=== PATIENT | female | born 1975 | race Caucasian/White ===

== ENCOUNTER 2019-11-26 12:57 | Observation (INO) ==
[~2019-11-26 12:57] MED LIST: Famotidine 20 MG/2 ML VIAL IVP ONE; Gabapentin 300 MG CAPSULE PO ONE; Ipratropium/Albuterol Neb 3 ML IH ONE
[2019-11-26] MEDS ORDERED: CeFAZolin Syr 3,000MG/30 ML 3,000 MG/30 ML SYRINGE IVPB ONE (13:15)
[2019-11-26] MEDS ORDERED: Ringers Solution, Lactated 1,000 ML IVC SCH ×2 (13:15→19:30)
[2019-11-26] MEDS ORDERED: Ipratropium/Albuterol Neb 3 ML IH ONE (14:13)
[2019-11-26] MEDS ORDERED: Gabapentin 300 MG CAPSULE PO ONE (14:14)
[2019-11-26] MEDS ORDERED: Famotidine 20 MG/2 ML VIAL IVP ONE (14:14)
[2019-11-26] MEDS ORDERED: Dexamethasone 4 MG/ML VIAL ONE (14:38)
[2019-11-26] MEDS ORDERED: Lidocaine HCL 4 ML Topical Solution (Laryng-O-Jet Kit Sterile Pak) TP ONE (14:38)
[2019-11-26] MEDS ORDERED: *HR* Rocuronium Bromide 50 MG/5 ML VIAL ONE (14:38)
[2019-11-26] MEDS ORDERED: Lidocaine -MPF 2% 2 ML VIAL ONE (14:38)
[2019-11-26] MEDS ORDERED: Ondansetron 4 MG/2 ML VIAL ONE (14:38)
[2019-11-26] MEDS ORDERED: *HR* Midazolam HCl 2 MG/2 ML VIAL ONE (14:38)
[2019-11-26] MEDS ORDERED: *HR* FentaNYL (PF) 100 MCG/2 ML VIAL ONE (14:38)
[2019-11-26] MEDS ORDERED: *HR* Propofol 200 MG/20 ML VIAL IVP ONE ×2 (14:38→14:56)
[2019-11-26] MEDS ORDERED: *HR* Succinylcholine 200 MG/10 ML VIAL IVP ONE (14:54)
[2019-11-26] MEDS ORDERED: Bupivacaine/EPI 1:200k 0.5%PF 30 ML VIAL ONE (14:59)
[2019-11-26] MEDS ORDERED: *HR* HYDROMORPHONE 2 MG/ML VIAL ONE (15:50)
[2019-11-26] MEDS ORDERED: *HR* PHENYLEPHRINE 1,000 MCG/10 ML SYRINGE IVP ONE (16:10)
[2019-11-26] MEDS: *HR* HYDROmorphone (PF) 1 MG/ML SYRINGE IVP PRN ×2 (16:55→17:10)
[2019-11-26] MEDS ORDERED: Ondansetron 4 MG/2 ML VIAL IVP PRN ×2 (17:03→19:30)
[2019-11-26] MEDS ORDERED: *HR* Labetalol 20 MG/4 ML SYRINGE IVP PRN (17:03)
[2019-11-26] MEDS ORDERED: *HR* Promethazine 25 MG/ML VIAL IVP PRN ×2 (17:03→19:30)
[2019-11-26] MEDS ORDERED: MOM Conc 10 ML UD.LIQ PO PRN (19:30)
[2019-11-26] MEDS ORDERED: Sennosides 8.6 MG TABLET PO PRN (19:30)
[2019-11-26] MEDS ORDERED: Naloxone 0.4 MG/ML INJ IVP PRN (19:30)
[2019-11-26] MEDS: *HR* OxyCODONE Immed Rel 5 MG TABLET PO PRN (22:18)
[2019-11-27] MEDS: ceFAZolin 3,000 MG in 0.9 % Sodium Chloride 100 ML IVPB SCH ×2 (00:24→17:48)
[2019-11-27] MEDS: *HR* OxyCODONE Immed Rel 5 MG TABLET PO PRN ×3 (04:43→23:28)
[2019-11-27] MEDS ORDERED: Ascorbic Acid 500 MG TABLET ONE (12:31)
[2019-11-27] MEDS ORDERED: *HR* OxyCODONE Immed Rel 5 MG TABLET ONE (12:31)
[2019-11-27] MEDS ORDERED: Multivit/Ca/Min/Fe/FA 1 TAB TABLET ONE (12:31)
[2019-11-27 14:23] LABS: Basophils % 0.2 %; Hematocrit 35.7 % (35.3-44.9); Hemoglobin 11.1 g/dL (11.5-15.4); Immature Granulocytes % 0.3 % (0-4); Lymphocytes # 0.6 K/mcL (0.6-4.6); Lymphocytes % 5.9 %; Mean Corpuscular HGB Conc 31.1 g/dL (31.6-35.5); Mean Corpuscular Hemoglobin 29.7 pg (28.0-33.3); Mean Corpuscular Volume 95.5 fL (83.0-100.0); Mean Platelet Volume 9.8 fL (9.4-12.4); Monocytes # 0.5 K/mcL (0.0-1.3); Monocytes % 4.4 %; Neutrophils # 9.2 K/mcL (1.6-8.9); Platelet Count 258 K/mcL (140-400); Red Blood Count 3.74 M/mcL (3.82-4.97); Red Cell Distribution Width 14.4 % (11.5-14.5); Segmented Neutrophils % 89.2 %; White Blood Count 10.3 K/mcL (4.3-11.1)
[2019-11-27] MEDS: Ascorbic Acid 500 MG TABLET PO SCH ×2 (17:37→17:49)
[2019-11-27] MEDS: Multivit/Ca/Min/Fe/FA 1 TAB TABLET PO SCH (17:49)
[2019-11-27] MEDS: Aspirin Enteric Coated 81 MG Tablet PO SCH (18:32)
[2019-11-27] MEDS ORDERED: tiZANidine 4 MG TABLET PO PRN (21:00)
[2019-11-27] MEDS: HYDROcodone BIT/Homatropine 5 MG TABLET PO PRN (21:18)
[2019-11-27] MEDS: Famotidine 20 MG TABLET PO SCH (21:18)
[2019-11-27] MEDS: Gabapentin 400 MG CAPSULE PO SCH (21:19)
[2019-11-27] MEDS: FLUoxetine 20 MG CAPSULE PO SCH (21:19)
[2019-11-28 00:51] LABS: BUN/Creatinine Ratio 16 (6-26); Blood Urea Nitrogen 13 mg/dL (6-20); Calcium 8.9 mg/dL (8.6-10.3); Carbon Dioxide 29 mEq/L (23-29); Chloride 102 mEq/L (98-107); Glucose 163 mg/dL (70-105); Osmolality,Calculated 288 (280-300); Potassium 3.9 mEq/L (3.5-5.1); Sodium 137 mEq/L (136-145); eGFR For African Americans > 60 (> 60); eGFR For Non-African Americans > 60 (> 60)
[2019-11-28 07:01] LABS: BUN/Creatinine Ratio 22 (6-26); Blood Urea Nitrogen 15 mg/dL (6-20); Calcium 8.8 mg/dL (8.6-10.3); Carbon Dioxide 29 mEq/L (23-29); Chloride 103 mEq/L (98-107); Glucose 100 mg/dL (70-105); Osmolality,Calculated 287 (280-300); Potassium 3.9 mEq/L (3.5-5.1); Sodium 138 mEq/L (136-145); eGFR For African Americans > 60 (> 60); eGFR For Non-African Americans > 60 (> 60)
[2019-11-28 07:04] LABS: Hemoglobin 11.3 g/dL (11.5-15.4); Mean Corpuscular Volume 93.7 fL (83.0-100.0)
[2019-11-28 07:06] LABS: Basophils % 0.5 %; Eosinophils # 0.1 K/mcL (0.0-0.6); Eosinophils % 0.8 %; Hematocrit 35.8 % (35.3-44.9); Immature Granulocytes % 0.7 % (0-4); Immature Platelets 3.7 % (1.1-6.1); Lymphocytes # 2.6 K/mcL (0.6-4.6); Lymphocytes % 29.1 %; Mean Corpuscular HGB Conc 31.6 g/dL (31.6-35.5); Mean Corpuscular Hemoglobin 29.6 pg (28.0-33.3); Mean Platelet Volume 10.8 fL (9.4-12.4); Monocytes # 0.8 K/mcL (0.0-1.3); Monocytes % 8.9 %; Neutrophils # 5.3 K/mcL (1.6-8.9); Platelet Count 209 K/mcL (140-400); Red Blood Count 3.82 M/mcL (3.82-4.97); Red Cell Distribution Width 14.8 % (11.5-14.5); White Blood Count 8.8 K/mcL (4.3-11.1)
[2019-11-28] MEDS: Aspirin Enteric Coated 81 MG Tablet PO SCH (08:10)
[2019-11-28] MEDS: FLUoxetine 20 MG CAPSULE PO SCH ×2 (08:10→20:55)
[2019-11-28] MEDS: Gabapentin 400 MG CAPSULE PO SCH ×3 (08:11→20:55)
[2019-11-28] MEDS: *HR* OxyCODONE Immed Rel 5 MG TABLET PO PRN ×3 (08:11→18:21)
[2019-11-28] MEDS: Famotidine 20 MG TABLET PO SCH ×2 (08:11→20:55)
[2019-11-28] MEDS: Ascorbic Acid 500 MG TABLET PO SCH ×2 (08:11→16:27)
[2019-11-28] MEDS: Propranolol LA (24 HR) 60 MG CAP.SA.24H PO SCH (08:12)
[2019-11-28] MEDS: Multivit/Ca/Min/Fe/FA 1 TAB TABLET PO SCH (08:12)
[2019-11-28] MEDS: Venlafaxine XR (24 HR) 75 MG CAP.ER.24H PO SCH (08:12)
[2019-11-28] MEDS: (Mirabegron [Myrbetriq] 50 MG) PO SCH (08:13)
[2019-11-28] MEDS: HYDROcodone BIT/Homatropine 5 MG TABLET PO PRN (20:55)
[2019-11-29] MEDS: *HR* OxyCODONE Immed Rel 5 MG TABLET PO PRN ×4 (01:07→22:30)
[2019-11-29] MEDS: Venlafaxine XR (24 HR) 75 MG CAP.ER.24H PO SCH (10:40)
[2019-11-29] MEDS: Propranolol LA (24 HR) 60 MG CAP.SA.24H PO SCH (10:40)
[2019-11-29] MEDS: Gabapentin 400 MG CAPSULE PO SCH ×3 (10:40→20:12)
[2019-11-29] MEDS: Famotidine 20 MG TABLET PO SCH ×2 (10:40→20:12)
[2019-11-29] MEDS: FLUoxetine 20 MG CAPSULE PO SCH ×2 (10:41→20:12)
[2019-11-29] MEDS: Ascorbic Acid 500 MG TABLET PO SCH ×2 (10:41→16:15)
[2019-11-29] MEDS: Multivit/Ca/Min/Fe/FA 1 TAB TABLET PO SCH (10:41)
[2019-11-29] MEDS: Aspirin Enteric Coated 81 MG Tablet PO SCH (10:41)
[2019-11-29] MEDS: (Mirabegron [Myrbetriq] 50 MG) PO SCH (14:10)
[2019-11-30] MEDS: *HR* OxyCODONE Immed Rel 5 MG TABLET PO PRN ×4 (02:53→21:59)
[2019-11-30] MEDS: Famotidine 20 MG TABLET PO SCH ×2 (08:18→20:12)
[2019-11-30] MEDS: Gabapentin 400 MG CAPSULE PO SCH ×3 (08:18→20:12)
[2019-11-30] MEDS: Aspirin Enteric Coated 81 MG Tablet PO SCH (08:18)
[2019-11-30] MEDS: FLUoxetine 20 MG CAPSULE PO SCH ×2 (08:18→20:12)
[2019-11-30] MEDS: Venlafaxine XR (24 HR) 75 MG CAP.ER.24H PO SCH (08:19)
[2019-11-30] MEDS: Propranolol LA (24 HR) 60 MG CAP.SA.24H PO SCH (08:19)
[2019-11-30] MEDS: Multivit/Ca/Min/Fe/FA 1 TAB TABLET PO SCH (08:19)
[2019-11-30] MEDS: Ascorbic Acid 500 MG TABLET PO SCH ×2 (08:19→16:01)
[2019-11-30] MEDS: (Mirabegron [Myrbetriq] 50 MG) PO SCH (20:13)
[2019-12-01] MEDS: *HR* OxyCODONE Immed Rel 5 MG TABLET PO PRN (02:08)
[2019-12-01] MEDS: Famotidine 20 MG TABLET PO SCH (07:35)
[2019-12-01] MEDS: Gabapentin 400 MG CAPSULE PO SCH (07:35)
[2019-12-01] MEDS: Venlafaxine XR (24 HR) 75 MG CAP.ER.24H PO SCH (07:35)
[2019-12-01] MEDS: Ascorbic Acid 500 MG TABLET PO SCH (07:35)
[2019-12-01] MEDS: FLUoxetine 20 MG CAPSULE PO SCH (07:35)
[2019-12-01] MEDS: Aspirin Enteric Coated 81 MG Tablet PO SCH (07:35)
[2019-12-01] MEDS: Propranolol LA (24 HR) 60 MG CAP.SA.24H PO SCH (07:35)
[2019-12-01] MEDS: Multivit/Ca/Min/Fe/FA 1 TAB TABLET PO SCH (07:35)
[2019-12-01] MEDS: (Mirabegron [Myrbetriq] 50 MG) PO SCH (07:36)
[2019-12-01 10:27] VITALS: BP 109/66
== END 2019-12-01 15:45 | disposition home health service (06) ==
LOC: 3NENU 12:57 → SAMDAY 12:57
PROVIDERS: ADMIT Orthopaedic Surgery; ATTEND Orthopaedic Surgery

== ENCOUNTER 2020-01-17 12:01 | Observation (INO) ==
[2020-01-17 13:36] LABS: Basophils % 0.3 %; Eosinophils # 0.1 K/mcL (0.0-0.6); Hematocrit 35.2 % (35.3-44.9); Immature Granulocytes % 0.3 % (0-4); Lymphocytes # 1.1 K/mcL (0.6-4.6); Lymphocytes % 16.8 %; Mean Corpuscular HGB Conc 31.3 g/dL (31.6-35.5); Mean Corpuscular Hemoglobin 29.6 pg (28.0-33.3); Mean Corpuscular Volume 94.6 fL (83.0-100.0); Mean Platelet Volume 9.3 fL (9.4-12.4); Monocytes # 0.6 K/mcL (0.0-1.3); Monocytes % 9.2 %; Neutrophils # 4.8 K/mcL (1.6-8.9); Platelet Count 289 K/mcL (140-400); Red Blood Count 3.72 M/mcL (3.82-4.97); Red Cell Distribution Width 14.3 % (11.5-14.5); Segmented Neutrophils % 71.4 %; White Blood Count 6.7 K/mcL (4.3-11.1)
[2020-01-17 13:51] LABS: BUN/Creatinine Ratio 19 (6-26); Blood Urea Nitrogen 13 mg/dL (6-20); Carbon Dioxide 28 mEq/L (23-29); Chloride 102 mEq/L (98-107); Glucose 94 mg/dL (70-105); Osmolality,Calculated 278 (280-300); Potassium 3.8 mEq/L (3.5-5.1); Sodium 134 mEq/L (136-145); eGFR For African Americans > 60 (> 60); eGFR For Non-African Americans > 60 (> 60)
[2020-01-17] MEDS ORDERED: Furosemide 40 MG/4 ML VIAL IVP ONE (14:48)
[2020-01-17] MEDS ORDERED: Ondansetron 4 MG/2 ML VIAL IVP PRN (15:11)
[2020-01-17] MEDS ORDERED: Naloxone 0.4 MG/ML INJ IVP PRN (15:11)
[2020-01-17 15:39] LABS: C-Reactive Protein 32 mg/L (Less than 10)
[2020-01-17] MEDS: *HR* Heparin 5,000 UNIT/ML VIAL SQ SCH (16:32)
[2020-01-17] MEDS: Clindamycin 600 MG/50 ML 600 MG/50 ML IV.SOLN IVPB SCH (16:35)
[2020-01-17] MEDS: Furosemide 40 MG/4 ML VIAL IVP SCH (19:56)
[2020-01-17] MEDS: Gabapentin 400 MG CAPSULE PO SCH (19:56)
[2020-01-17] MEDS: FLUoxetine 20 MG CAPSULE PO SCH (19:56)
[2020-01-18] MEDS: Clindamycin 600 MG/50 ML 600 MG/50 ML IV.SOLN IVPB SCH ×2 (00:05→10:26)
[2020-01-18] MEDS: *HR* Heparin 5,000 UNIT/ML VIAL SQ SCH (06:19)
[2020-01-18 06:27] LABS: Basophils % 0.5 %; Eosinophils # 0.1 K/mcL (0.0-0.6); Eosinophils % 2.2 %; Hematocrit 31.6 % (35.3-44.9); Hemoglobin 9.8 g/dL (11.5-15.4); Immature Granulocytes % 0.4 % (0-4); Lymphocytes # 1.5 K/mcL (0.6-4.6); Lymphocytes % 27.6 %; Mean Corpuscular Hemoglobin 28.8 pg (28.0-33.3); Mean Corpuscular Volume 92.9 fL (83.0-100.0); Mean Platelet Volume 9.2 fL (9.4-12.4); Monocytes # 0.5 K/mcL (0.0-1.3); Monocytes % 9.9 %; Neutrophils # 3.3 K/mcL (1.6-8.9); Platelet Count 219 K/mcL (140-400); Red Cell Distribution Width 14.4 % (11.5-14.5); Segmented Neutrophils % 59.4 %; White Blood Count 5.5 K/mcL (4.3-11.1)
[2020-01-18 06:28] LABS: Prothrombin Time 11.6 Seconds (9.4-12.1)
[2020-01-18 06:30] LABS: Activated Partial Thrombo Time 27.5 Seconds (26.0-36.0)
[2020-01-18 06:59] LABS: Alanine Aminotransferase 16 Units/L (7-52); Albumin 3.3 g/dL (3.5-5.7); Albumin/Globulin Ratio 1.2 (1.1-2.2); Alkaline Phosphatase 91 Units/L (34-104); Aspartate Amino Transferase 12 Units/L (13-39); BUN/Creatinine Ratio 19 (6-26); Bilirubin,Total 0.4 mg/dL (0.3-1.0); Blood Urea Nitrogen 14 mg/dL (6-20); Calcium 8.7 mg/dL (8.6-10.3); Carbon Dioxide 28 mEq/L (23-29); Chloride 102 mEq/L (98-107); Globulin 2.7 g/dL (2.4-3.5); Glucose 91 mg/dL (70-105); Magnesium 1.8 mg/dL (1.6-2.6); Osmolality,Calculated 284 (280-300); Phosphorous 4.6 mg/dL (2.7-4.5); Potassium 3.6 mEq/L (3.5-5.1); Sodium 137 mEq/L (136-145); eGFR For African Americans > 60 (> 60); eGFR For Non-African Americans > 60 (> 60)
[2020-01-18] MEDS ORDERED: Venlafaxine XR (24 HR) 150 MG CAP.ER.24H PO SCH ×2 (09:00)
[2020-01-18] MEDS ORDERED: Propranolol LA (24 HR) 60 MG CAP.SA.24H PO SCH (09:00)
[2020-01-18] MEDS: FLUoxetine 20 MG CAPSULE PO SCH (10:26)
[2020-01-18] MEDS: Furosemide 40 MG/4 ML VIAL IVP SCH (10:26)
[2020-01-18] MEDS: Gabapentin 400 MG CAPSULE PO SCH (10:27)
[2020-01-18 10:31] VITALS: BP 119/73
== END 2020-01-18 12:31 | disposition home or self-care (01) ==
LOC: 3BNU 12:01 → EMEROOARM 12:01 → SUATTDRO 15:11 → 3BNU 16:08
PROVIDERS: ADMIT Internal Medicine; ATTEND Internal Medicine

== ENCOUNTER 2022-02-13 12:08 | Observation (INO) ==
[2022-02-13] MEDS ORDERED: Isovue-370 500 ML BOTTLE IVP ONE (13:04)
[2022-02-13 13:12] LABS: Basophils % 0.4 %; Eosinophils # 0.3 K/mcL (0.0-0.6); Eosinophils % 2.8 %; Hematocrit 32.9 % (35.3-44.9); Hemoglobin 10.1 g/dL (11.5-15.4); Immature Granulocytes % 0.5 % (0-4); Lymphocytes # 1.5 K/mcL (0.6-4.6); Lymphocytes % 14.2 %; Mean Corpuscular HGB Conc 30.7 g/dL (31.6-35.5); Mean Corpuscular Volume 97.6 fL (83.0-100.0); Mean Platelet Volume 8.8 fL (9.4-12.4); Monocytes # 0.9 K/mcL (0.0-1.3); Monocytes % 8.4 %; Platelet Count 328 K/mcL (140-400); Red Blood Count 3.37 M/mcL (3.82-4.97); Segmented Neutrophils % 73.7 %; White Blood Count 10.8 K/mcL (4.3-11.1)
[2022-02-13] MEDS ORDERED: Cefepime HCl 2,000 MG in 0.9 % Sodium Chloride 10 ML IVP ONE (13:37)
[2022-02-13] MEDS ORDERED: MetroNIDAZOLE 500 MG/100 ML 500 MG/100 ML BAG IVPB ONE (13:37)
[2022-02-13 13:43] LABS: BUN/Creatinine Ratio 13 (6-26); Blood Urea Nitrogen 12 mg/dL (6-20); Calcium 8.8 mg/dL (8.6-10.3); Carbon Dioxide 26 mEq/L (23-29); Chloride 100 mEq/L (98-107); Glucose 111 mg/dL (70-105); Osmolality,Calculated 278 (280-300); Potassium 4.1 mEq/L (3.5-5.1); Sodium 134 mEq/L (136-145); eGFR For African Americans > 60 (> 60); eGFR For Non-African Americans > 60 (> 60)
[2022-02-13 13:52] LABS: C-Reactive Protein 144 mg/L (Less than 10)
[2022-02-13] MEDS ORDERED: Vancomycin 2,000 MG/520 ML IV.SOLN IVPB ONE (14:00)
[2022-02-13] MEDS ORDERED: Naloxone 0.4 MG/ML INJ IVP PRN (16:46)
[2022-02-13] MEDS ORDERED: Mag Hydrox/Al Hydrox/Simeth 30 ML UDC PO PRN (16:46)
[2022-02-13] MEDS ORDERED: Ondansetron ODT 4 MG TAB.RAPDIS SL PRN (16:46)
[2022-02-13] MEDS ORDERED: Melatonin 3 MG TABLET PO PRN (16:46)
[2022-02-13] MEDS: Cefepime HCl 2,000 MG in 0.9 % Sodium Chloride 10 ML IVP SCH (22:52)
[2022-02-14] MEDS: Vancomycin 1,750 MG/517.5 ML IV.SOLN IVPB SCH ×2 (02:21→12:43)
[2022-02-14] MEDS: Famotidine 20 MG TABLET PO SCH ×3 (02:21→16:08)
[2022-02-14] MEDS: Gabapentin 400 MG CAPSULE PO SCH ×4 (02:21→22:09)
[2022-02-14] MEDS: FLUoxetine 20 MG CAPSULE PO SCH ×3 (02:21→22:09)
[2022-02-14 03:26] LABS: Basophils % 0.3 %; Eosinophils # 0.2 K/mcL (0.0-0.6); Eosinophils % 1.8 %; Hematocrit 27.6 % (35.3-44.9); Hemoglobin 8.9 g/dL (11.5-15.4); Immature Granulocytes % 0.4 % (0-4); Lymphocytes # 1.6 K/mcL (0.6-4.6); Lymphocytes % 17.8 %; Mean Corpuscular HGB Conc 32.2 g/dL (31.6-35.5); Mean Corpuscular Volume 96.2 fL (83.0-100.0); Monocytes # 0.9 K/mcL (0.0-1.3); Monocytes % 10.1 %; Neutrophils # 6.3 K/mcL (1.6-8.9); Platelet Count 284 K/mcL (140-400); Red Blood Count 2.87 M/mcL (3.82-4.97); Red Cell Distribution Width 14.9 % (11.5-14.5); Segmented Neutrophils % 69.6 %
[2022-02-14 03:48] LABS: BUN/Creatinine Ratio 13 (6-26); Blood Urea Nitrogen 12 mg/dL (6-20); Calcium 8.4 mg/dL (8.6-10.3); Carbon Dioxide 24 mEq/L (23-29); Chloride 102 mEq/L (98-107); Glucose 116 mg/dL (70-105); Osmolality,Calculated 281 (280-300); Potassium 3.7 mEq/L (3.5-5.1); Sodium 135 mEq/L (136-145); eGFR For African Americans > 60 (> 60); eGFR For Non-African Americans > 60 (> 60)
[2022-02-14] MEDS: Cefepime HCl 2,000 MG in 0.9 % Sodium Chloride 10 ML IVP SCH ×3 (08:44→23:37)
[2022-02-14] MEDS: Furosemide 40 MG TABLET PO SCH (08:44)
[2022-02-14] MEDS: lisinopriL 20 MG TABLET PO SCH (08:44)
[2022-02-14] MEDS: Lactobacillus 1 EACH CAP.SPRINK PO SCH ×2 (08:45→22:08)
[2022-02-14] MEDS: Acetaminophen 325 MG TABLET PO PRN (12:43)
[2022-02-14] MEDS ORDERED: *HR* HYDROcodone/Acet 5/325 mg TABLET PO ONE (23:22)
[2022-02-15 01:18] LABS: Basophils % 0.3 %; Eosinophils # 0.3 K/mcL (0.0-0.6); Eosinophils % 5.1 %; Hematocrit 28.4 % (35.3-44.9); Hemoglobin 8.9 g/dL (11.5-15.4); Immature Granulocytes % 0.3 % (0-4); Lymphocytes # 1.9 K/mcL (0.6-4.6); Lymphocytes % 28.3 %; Mean Corpuscular HGB Conc 31.3 g/dL (31.6-35.5); Mean Platelet Volume 8.7 fL (9.4-12.4); Monocytes # 0.7 K/mcL (0.0-1.3); Monocytes % 9.8 %; Neutrophils # 3.7 K/mcL (1.6-8.9); Nucleated Red Blood Cells 0.3 /100 WBC (0); Platelet Count 282 K/mcL (140-400); Red Blood Count 2.87 M/mcL (3.82-4.97); Red Cell Distribution Width 15.1 % (11.5-14.5); Segmented Neutrophils % 56.2 %; White Blood Count 6.6 K/mcL (4.3-11.1)
[2022-02-15] MEDS: Vancomycin 1,750 MG/517.5 ML IV.SOLN IVPB SCH (02:46)
[2022-02-15 03:55] LABS: BUN/Creatinine Ratio 12 (6-26); Blood Urea Nitrogen 13 mg/dL (6-20); Calcium 8.4 mg/dL (8.6-10.3); Carbon Dioxide 26 mEq/L (23-29); Chloride 105 mEq/L (98-107); Glucose 121 mg/dL (70-105); Osmolality,Calculated 287 (280-300); Sodium 138 mEq/L (136-145); eGFR For African Americans > 60 (> 60); eGFR For Non-African Americans 53 (> 60)
[2022-02-15 08:34] VITALS: BP 132/65; PULSE 60; TEMP 98.1; O2SAT 97
[2022-02-15] MEDS: Cefepime HCl 2,000 MG in 0.9 % Sodium Chloride 10 ML IVP SCH (08:39)
[2022-02-15] MEDS: FLUoxetine 20 MG CAPSULE PO SCH (08:40)
[2022-02-15] MEDS: Famotidine 20 MG TABLET PO SCH (08:40)
[2022-02-15] MEDS: Lactobacillus 1 EACH CAP.SPRINK PO SCH (08:41)
[2022-02-15] MEDS: Gabapentin 400 MG CAPSULE PO SCH (08:41)
[2022-02-15] MEDS: Furosemide 40 MG TABLET PO SCH (08:41)
[2022-02-15] MEDS: lisinopriL 20 MG TABLET PO SCH (08:41)
[2022-02-15] MEDS ORDERED: Lidocaine Jelly 11 ml Syringe TP ONE (08:55)
[2022-02-15] MEDS: Acetaminophen 325 MG TABLET PO PRN (13:09)
== END 2022-02-15 15:06 | disposition home health service (06) ==
LOC: 3ANU 12:08 → EMEROOARM 12:08 → SUATTDRO 17:22 → 3ANU 18:12
PROVIDERS: ADMIT Internal Medicine; ATTEND Family Medicine

== ENCOUNTER 2022-03-18 01:49 | Inpatient (IN) ==
[2022-03-18] MEDS ORDERED: Ipratropium/Albuterol Neb 3 ML IH ONE (02:15)
[2022-03-18] MEDS ORDERED: methylPREDNISolone 125 MG/2 ML VIAL IVP ONE (02:15)
[2022-03-18 02:59] LABS: VBG HCO3 19 mEq/L (21-27); VBG PCO2 37 mmHg (41-51); VBG PH 7.33 pH Units (7.32-7.42); VBG PO2 40 mmHg (25-50)
[2022-03-18 03:08] LABS: Hematocrit 31.6 % (35.3-44.9); Hemoglobin 10.2 g/dL (11.5-15.4); Mean Corpuscular HGB Conc 32.3 g/dL (31.6-35.5); Mean Platelet Volume 9.5 fL (9.4-12.4); Platelet Count 219 K/mcL (140-400); Red Blood Count 3.29 M/mcL (3.82-4.97); White Blood Count 18.5 K/mcL (4.3-11.1)
[2022-03-18] MEDS ORDERED: 0.9 % Sodium Chloride 1,000 ML IVC ONE ×2 (03:10→17:40)
[2022-03-18 03:25] LABS: Influenza A PCR Negative (Negative); Influenza B PCR Negative (Negative); Resp. Syncytial Virus PCR Negative (Negative)
[2022-03-18 03:28] LABS: SARS-CoV-2 by PCR (In House) Negative (Negative)
[2022-03-18 03:35] LABS: BUN/Creatinine Ratio 15 (6-26); Blood Urea Nitrogen 23 mg/dL (6-20); Calcium 8.4 mg/dL (8.6-10.3); Carbon Dioxide 19 mEq/L (23-29); Chloride 100 mEq/L (98-107); Glucose 151 mg/dL (70-105); Osmolality,Calculated 275 (280-300); Potassium 3.7 mEq/L (3.5-5.1); Sodium 129 mEq/L (136-145); Troponin I 0.04 ng/mL (< 0.04); eGFR For African Americans 44 (> 60); eGFR For Non-African Americans 36 (> 60)
[2022-03-18] MEDS ORDERED: Azithromycin 500 MG in 0.9 % Sodium Chloride 250 ML IVPB ONE (03:44)
[2022-03-18] MEDS ORDERED: cefTRIAXone 1,000 MG in Water for inj. (sterile) 10 ML IVP ONE (03:44)
[2022-03-18 03:51] LABS: Lymphocytes # 0.4 K/mcL (0.6-4.6); Monocytes # 0.4 K/mcL (0.0-1.3); Neutrophils # 17.8 K/mcL (1.6-8.9)
[2022-03-18 03:52] LABS: Platelet Estimate Normal (Normal); Toxic Granulation Present (Not Present)
[2022-03-18 04:27] LABS: Bacteria,Urine Few per hpf (None-Few); Bilirubin,Urine Small (Negative); Blood,Urine Small (Negative); Clarity,Urine Ex.Turbid (Clear); Color,Urine Dark-Yellow (Yellow); Glucose,Urine (UA) Normal (Normal); Ketones,Urine Negative (Negative); Leukocyte Esterase,Urine Moderate (Negative); Mucus,Urine Few per lpf (None-Few); Nitrite,Urine Negative (Negative); Protein,Urine >=600 mg/dL (Neg-Trace); Specific Gravity,Urine 1.025 (1.010-1.025); Squamous Epithelial Cell,Urine Few per hpf (None-Few); Urobilinogen,Urine >=8.0 mg/dL (Normal); WBC,Urine 30-50 per hpf (0-3)
[2022-03-18] MEDS ORDERED: Iopamidol - 370 500 ML MLS IVP ONE (05:29)
[2022-03-18] MEDS ORDERED: Naloxone 0.4 MG/ML INJ IVP PRN (05:33)
[2022-03-18 06:07] LABS: Alanine Aminotransferase 15 Units/L (7-52); Albumin 2.8 g/dL (3.5-5.7); Albumin/Globulin Ratio 0.8 (1.1-2.2); Alkaline Phosphatase 102 Units/L (34-104); Aspartate Amino Transferase 15 Units/L (13-39); Bilirubin,Direct 1.5 mg/dL (0.0-0.2); Bilirubin,Indirect 0.5 mg/dL (0.0-1.0); C-Reactive Protein > 300 mg/L (Less than 10); Cholesterol 117 mg/dL (< 200); Globulin 3.5 g/dL (2.4-3.5); HDL Cholesterol 29 mg/dL (40-59); LDL Cholesterol,Calculated 69 mg/dL (< 100); Magnesium 1.2 mg/dL (1.6-2.6); Total Protein 6.3 g/dL (6.4-8.9); Triglycerides 95 mg/dL (< 150)
[2022-03-18 06:10] LABS: INR 1.3; Prothrombin Time 14.9 Seconds (9.4-12.1)
[2022-03-18 06:20] LABS: Thyroid Stimulating Hormone 1.872 mcIU/mL (0.340-5.600)
[2022-03-18] MEDS ORDERED: *HR* Heparin 5,000 UNIT/ML VIAL IVP ONE (06:43)
[2022-03-18] MEDS ORDERED: *HR* Heparin 5,000 UNIT/ML VIAL IVP PRN ×2 (06:43)
[2022-03-18] MEDS ORDERED: Magnesium Sulfate 1 GM/102 ML PIGGYBACK IVPB ONE (07:00)
[2022-03-18] MEDS: Cefepime HCl 2,000 MG in 0.9 % Sodium Chloride Mini Bag 100 ML IVPB SCH ×3 (07:40→23:52)
[2022-03-18] MEDS: Vancomycin 2,000 MG/520 ML IV.SOLN IVPB SCH ×2 (08:16→22:00)
[2022-03-18] MEDS: Heparin 25,000UNIT/250ML 1/2NS 25,000 UNIT/250 ML IV.SOLN IVC SCH ×2 (08:18→16:45)
[2022-03-18] MEDS: 0.9 % Sodium Chloride 1,000 ML IVC SCH ×2 (09:23→18:31)
[2022-03-18 10:18] LABS: Calcium 7.7 mg/dL (8.6-10.3); Potassium 3.9 mEq/L (3.5-5.1)
[2022-03-18] MEDS: Acetaminophen 325 MG TABLET PO PRN (14:17)
[2022-03-18] MEDS: Gabapentin 400 MG CAPSULE PO SCH ×2 (16:22→20:24)
[2022-03-18] MEDS: Ondansetron 4 MG/2 ML VIAL IVP PRN (17:45)
[2022-03-18] MEDS: Famotidine 20 MG TABLET PO SCH (20:24)
[2022-03-18] MEDS: Lactobacillus 1 EACH CAP.SPRINK PO SCH (20:24)
[2022-03-18] MEDS: FLUoxetine 20 MG CAPSULE PO SCH (20:24)
[2022-03-19] MEDS: Heparin 25,000UNIT/250ML 1/2NS 25,000 UNIT/250 ML IV.SOLN IVC SCH ×2 (00:38→08:53)
[2022-03-19] MEDS: lisinopriL 20 MG TABLET PO SCH (08:30)
[2022-03-19] MEDS: Lactobacillus 1 EACH CAP.SPRINK PO SCH ×2 (08:30→21:25)
[2022-03-19] MEDS: Gabapentin 400 MG CAPSULE PO SCH ×3 (08:30→21:24)
[2022-03-19] MEDS: Famotidine 20 MG TABLET PO SCH ×2 (08:30→21:24)
[2022-03-19] MEDS: Cefepime HCl 2,000 MG in 0.9 % Sodium Chloride Mini Bag 100 ML IVPB SCH ×2 (08:31→16:02)
[2022-03-19] MEDS: FLUoxetine 20 MG CAPSULE PO SCH ×2 (08:31→21:25)
[2022-03-19] MEDS: Ondansetron 4 MG/2 ML VIAL IVP PRN ×2 (08:57→16:49)
[2022-03-19] MEDS ORDERED: Vancomycin 2,000 MG/520 ML IV.SOLN IVPB SCH (10:00)
[2022-03-19 13:20] LABS: Albumin 2.6 g/dL (3.5-5.7); Albumin/Globulin Ratio 0.8 (1.1-2.2); Bilirubin,Direct 0.8 mg/dL (0.0-0.2); Bilirubin,Indirect 0.4 mg/dL (0.0-1.0); Bilirubin,Total 1.2 mg/dL (0.3-1.0); Calcium 8.1 mg/dL (8.6-10.3); Globulin 3.3 g/dL (2.4-3.5); Magnesium 1.8 mg/dL (1.6-2.6); Potassium 4.3 mEq/L (3.5-5.1); Total Protein 5.9 g/dL (6.4-8.9)
[2022-03-19] MEDS: Acetaminophen 325 MG TABLET PO PRN (15:16)
[2022-03-19 23:56] LABS: Chloride,Urine < 15 mEq/L; Potassium,Urine 21.3 mEq/L; Sodium, Urine 15.1 mEq/L
[2022-03-20] MEDS ORDERED: Vancomycin 2,000 MG/520 ML IV.SOLN IVPB SCH (01:00)
[2022-03-20] MEDS: Cefepime HCl 2,000 MG in 0.9 % Sodium Chloride Mini Bag 100 ML IVPB SCH ×3 (02:16→13:56)
[2022-03-20 05:27] LABS: Hematocrit 28.4 % (35.3-44.9); Mean Corpuscular HGB Conc 31.7 g/dL (31.6-35.5); Mean Corpuscular Hemoglobin 30.7 pg (28.0-33.3); Mean Corpuscular Volume 96.9 fL (83.0-100.0); Mean Platelet Volume 9.5 fL (9.4-12.4); Platelet Count 200 K/mcL (140-400); Red Blood Count 2.93 M/mcL (3.82-4.97); Red Cell Distribution Width 16.3 % (11.5-14.5); White Blood Count 21.8 K/mcL (4.3-11.1)
[2022-03-20 05:47] LABS: Calcium 8.2 mg/dL (8.6-10.3); Potassium 4.1 mEq/L (3.5-5.1)
[2022-03-20 05:57] LABS: Large Platelets Present (Not Present); Lymphocytes # 0.9 K/mcL (0.6-4.6); Neutrophils # 20.9 K/mcL (1.6-8.9); Platelet Estimate Normal (Normal)
[2022-03-20] MEDS: Famotidine 20 MG TABLET PO SCH ×2 (08:16→20:37)
[2022-03-20] MEDS: lisinopriL 20 MG TABLET PO SCH (08:16)
[2022-03-20] MEDS: Gabapentin 400 MG CAPSULE PO SCH (08:16)
[2022-03-20] MEDS: Lactobacillus 1 EACH CAP.SPRINK PO SCH ×2 (08:16→20:37)
[2022-03-20] MEDS: FLUoxetine 20 MG CAPSULE PO SCH ×2 (08:16→20:37)
[2022-03-20 09:39] LABS: Folate 6.2 ng/mL (3.0-16.0)
[2022-03-20] MEDS: Ipratropium/Albuterol Neb 3 ML IH SCH ×3 (10:00→22:10)
[2022-03-20 12:15] LABS: Adenovirus Not Detected (Not Detect); Bordetella Pertussis Not Detected (Not Detect); Chlamydophila pneumoniae Not Detected (Not Detect); Coronavirus 229E Not Detected (Not Detect); Coronavirus HKU1 Not Detected (Not Detect); Coronavirus NL63 Not Detected (Not Detect); Coronavirus OC43 Not Detected (Not Detect); Human Metapneumovirus Not Detected (Not Detect); Human Rhinovirus/Enterovirus Not Detected (Not Detect); Influenza A Subtype 2009 H1 Not Detected (Not Detect); Influenza B Not Detected (Not Detect); Mycoplasma pneumoniae Not Detected (Not Detect); Parainfluenza Virus 1 Not Detected (Not Detect); Parainfluenza Virus 2 Not Detected (Not Detect); Parainfluenza Virus 3 Not Detected (Not Detect); Parainfluenza Virus 4 Not Detected (Not Detect); Respiratory Syncytial Virus Not Detected (Not Detect); SARS-CoV-2 Not Detected (Not Detect)
[2022-03-20] MEDS: Gabapentin 100 MG CAPSULE PO SCH ×2 (13:55→20:37)
[2022-03-20] MEDS: *HR* Heparin 5,000 UNIT/ML VIAL SQ SCH ×2 (13:56→20:37)
[2022-03-21] MEDS: Cefepime HCl 2,000 MG in 0.9 % Sodium Chloride Mini Bag 100 ML IVPB SCH ×2 (01:14→12:56)
[2022-03-21] MEDS: Ipratropium/Albuterol Neb 3 ML IH SCH ×4 (03:40→22:34)
[2022-03-21] MEDS: *HR* Heparin 5,000 UNIT/ML VIAL SQ SCH ×3 (04:59→21:18)
[2022-03-21 06:16] LABS: Hematocrit 29.5 % (35.3-44.9); Hemoglobin 9.1 g/dL (11.5-15.4); Mean Corpuscular HGB Conc 30.8 g/dL (31.6-35.5); Mean Corpuscular Hemoglobin 30.3 pg (28.0-33.3); Mean Corpuscular Volume 98.3 fL (83.0-100.0); Mean Platelet Volume 9.9 fL (9.4-12.4); Nucleated Red Blood Cells 0.1 /100 WBC (0); Platelet Count 220 K/mcL (140-400); Red Cell Distribution Width 16.7 % (11.5-14.5); White Blood Count 20.9 K/mcL (4.3-11.1)
[2022-03-21 06:38] LABS: Albumin 2.6 g/dL (3.5-5.7); Albumin/Globulin Ratio 0.7 (1.1-2.2); Bilirubin,Total 0.7 mg/dL (0.3-1.0); Calcium 8.4 mg/dL (8.6-10.3); Globulin 3.5 g/dL (2.4-3.5); Potassium 4.1 mEq/L (3.5-5.1); Total Protein 6.1 g/dL (6.4-8.9)
[2022-03-21 06:42] LABS: Lymphocytes # 2.9 K/mcL (0.6-4.6); Monocytes # 0.8 K/mcL (0.0-1.3); Neutrophils # 16.7 K/mcL (1.6-8.9); Platelet Estimate Normal (Normal)
[2022-03-21] MEDS: Famotidine 20 MG TABLET PO SCH ×2 (08:49→21:17)
[2022-03-21] MEDS: Gabapentin 100 MG CAPSULE PO SCH ×3 (08:49→21:18)
[2022-03-21] MEDS: Lactobacillus 1 EACH CAP.SPRINK PO SCH ×2 (08:49→21:17)
[2022-03-21] MEDS: FLUoxetine 20 MG CAPSULE PO SCH ×2 (08:49→21:18)
[2022-03-21] MEDS: DAPTOmycin 750 MG in 0.9 % Sodium Chloride 100 ML IVPB SCH (12:56)
[2022-03-21] MEDS: Albumin 25% 25gram/100mL 25 GM/100 ML IV.SOLN IVPB SCH (16:49)
[2022-03-21] MEDS: MethylPREDNISolone 40 MG/ML VIAL IVP SCH (18:42)
[2022-03-21] MEDS: GuaiFENesin Liq 200 MG/10 ML UDC PO PRN (22:23)
[2022-03-22] MEDS: Cefepime HCl 2,000 MG in 0.9 % Sodium Chloride Mini Bag 100 ML IVPB SCH ×2 (01:20→13:19)
[2022-03-22] MEDS: Albumin 25% 25gram/100mL 25 GM/100 ML IV.SOLN IVPB SCH ×2 (01:21→10:47)
[2022-03-22] MEDS: Ipratropium/Albuterol Neb 3 ML IH SCH ×4 (03:44→20:56)
[2022-03-22] MEDS: *HR* Heparin 5,000 UNIT/ML VIAL SQ SCH ×3 (06:40→21:29)
[2022-03-22 06:41] LABS: Hematocrit 28.5 % (35.3-44.9); Hemoglobin 8.8 g/dL (11.5-15.4); Mean Corpuscular HGB Conc 30.9 g/dL (31.6-35.5); Mean Corpuscular Hemoglobin 30.9 pg (28.0-33.3); Mean Platelet Volume 9.6 fL (9.4-12.4); Platelet Count 204 K/mcL (140-400); Red Blood Count 2.85 M/mcL (3.82-4.97); Red Cell Distribution Width 16.7 % (11.5-14.5); White Blood Count 22.2 K/mcL (4.3-11.1)
[2022-03-22 07:00] LABS: Calcium 8.4 mg/dL (8.6-10.3); Potassium 4.9 mEq/L (3.5-5.1)
[2022-03-22 07:15] LABS: Lymphocytes # 3.1 K/mcL (0.6-4.6); Monocytes # 0.4 K/mcL (0.0-1.3); Neutrophils # 18.7 K/mcL (1.6-8.9); Platelet Estimate Normal (Normal); Toxic Granulation Present (Not Present)
[2022-03-22 10:08] LABS: Complement C3 169 mg/dL (87-200)
[2022-03-22] MEDS: MethylPREDNISolone 40 MG/ML VIAL IVP SCH (10:33)
[2022-03-22] MEDS: Famotidine 20 MG TABLET PO SCH ×2 (10:34→21:30)
[2022-03-22] MEDS: Gabapentin 100 MG CAPSULE PO SCH ×3 (10:34→21:29)
[2022-03-22] MEDS: Lactobacillus 1 EACH CAP.SPRINK PO SCH ×2 (10:34→21:29)
[2022-03-22] MEDS: FLUoxetine 20 MG CAPSULE PO SCH ×2 (10:34→21:30)
[2022-03-22 10:40] LABS: Estimated Average Glucose 126 mg/dl
[2022-03-22] MEDS: DAPTOmycin 750 MG in 0.9 % Sodium Chloride 100 ML IVPB SCH (13:18)
[2022-03-22] MEDS: GuaiFENesin Liq 200 MG/10 ML UDC PO PRN (21:29)
[2022-03-23] MEDS: Cefepime HCl 2,000 MG in 0.9 % Sodium Chloride Mini Bag 100 ML IVPB SCH ×2 (02:42→14:45)
[2022-03-23] MEDS: Ipratropium/Albuterol Neb 3 ML IH SCH ×4 (04:27→21:32)
[2022-03-23 05:09] LABS: Red Cell Distribution Width 16.8 % (11.5-14.5)
[2022-03-23 05:10] LABS: Hemoglobin 8.9 g/dL (11.5-15.4); Mean Corpuscular HGB Conc 30.7 g/dL (31.6-35.5); Mean Corpuscular Hemoglobin 30.3 pg (28.0-33.3); Mean Corpuscular Volume 98.6 fL (83.0-100.0); Mean Platelet Volume 9.6 fL (9.4-12.4); Platelet Count 286 K/mcL (140-400); Red Blood Count 2.94 M/mcL (3.82-4.97); White Blood Count 25.9 K/mcL (4.3-11.1)
[2022-03-23 05:27] LABS: Calcium 8.7 mg/dL (8.6-10.3); Potassium 4.7 mEq/L (3.5-5.1)
[2022-03-23 05:46] LABS: Protein/Creatinine Ratio,Urine 1.63 mg/mg (0.00-0.20)
[2022-03-23] MEDS: *HR* Heparin 5,000 UNIT/ML VIAL SQ SCH ×3 (05:56→21:09)
[2022-03-23] MEDS: Acetaminophen 325 MG TABLET PO PRN ×2 (05:57→22:54)
[2022-03-23 06:42] LABS: Monocytes # 1.6 K/mcL (0.0-1.3)
[2022-03-23 06:43] LABS: Lymphocytes # 2.6 K/mcL (0.6-4.6); Neutrophils # 21.8 K/mcL (1.6-8.9); Platelet Estimate Normal (Normal)
[2022-03-23] MEDS: FLUoxetine 20 MG CAPSULE PO SCH ×2 (09:28→21:08)
[2022-03-23] MEDS: Gabapentin 100 MG CAPSULE PO SCH ×3 (09:29→21:09)
[2022-03-23] MEDS: Famotidine 20 MG TABLET PO SCH ×2 (09:29→21:09)
[2022-03-23] MEDS: Lactobacillus 1 EACH CAP.SPRINK PO SCH ×2 (09:29→21:09)
[2022-03-23] MEDS: MethylPREDNISolone 40 MG/ML VIAL IVP SCH (09:32)
[2022-03-23] MEDS: GuaiFENesin Liq 200 MG/10 ML UDC PO PRN (21:12)
[2022-03-24] MEDS: Cefepime HCl 2,000 MG in 0.9 % Sodium Chloride Mini Bag 100 ML IVPB SCH ×2 (01:10→11:45)
[2022-03-24] MEDS: Ipratropium/Albuterol Neb 3 ML IH SCH ×4 (03:33→22:33)
[2022-03-24] MEDS: *HR* Heparin 5,000 UNIT/ML VIAL SQ SCH ×3 (05:33→21:51)
[2022-03-24 05:44] LABS: Eosinophils % 1.1 %; Hemoglobin 8.7 g/dL (11.5-15.4); Mean Platelet Volume 9.1 fL (9.4-12.4); Nucleated Red Blood Cells 0.1 /100 WBC (0); Platelet Count 324 K/mcL (140-400); Red Cell Distribution Width 16.7 % (11.5-14.5)
[2022-03-24 05:45] LABS: Eosinophils # 0.3 K/mcL (0.0-0.6); Hematocrit 28.6 % (35.3-44.9); Immature Granulocytes % 22.1 % (0-4); Lymphocytes # 3.7 K/mcL (0.6-4.6); Lymphocytes % 13.5 %; Mean Corpuscular HGB Conc 30.4 g/dL (31.6-35.5); Mean Corpuscular Hemoglobin 30.2 pg (28.0-33.3); Mean Corpuscular Volume 99.3 fL (83.0-100.0); Monocytes # 1.6 K/mcL (0.0-1.3); Monocytes % 5.9 %; Neutrophils # 15.9 K/mcL (1.6-8.9); Red Blood Count 2.88 M/mcL (3.82-4.97); Segmented Neutrophils % 57.4 %; White Blood Count 27.7 K/mcL (4.3-11.1)
[2022-03-24 06:05] LABS: Calcium 8.3 mg/dL (8.6-10.3)
[2022-03-24 06:19] LABS: Platelet Estimate Normal (Normal)
[2022-03-24] MEDS ORDERED: predniSONE 20 MG TABLET PO SCH (09:00)
[2022-03-24] MEDS: FLUoxetine 20 MG CAPSULE PO SCH ×2 (09:36→21:51)
[2022-03-24] MEDS: Gabapentin 100 MG CAPSULE PO SCH ×3 (09:37→21:50)
[2022-03-24] MEDS: Lactobacillus 1 EACH CAP.SPRINK PO SCH ×2 (09:37→21:51)
[2022-03-24] MEDS: MetroNIDAZOLE 500 MG/100 ML 500 MG/100 ML BAG IVPB SCH ×2 (09:37→17:17)
[2022-03-24] MEDS: Famotidine 20 MG TABLET PO SCH ×2 (09:37→21:50)
[2022-03-24] MEDS: Sennosides/Docusate Sodium TABLET PO SCH ×2 (11:45→21:51)
[2022-03-24] MEDS: Acetaminophen 325 MG TABLET PO PRN (22:10)
[2022-03-25] MEDS: MetroNIDAZOLE 500 MG/100 ML 500 MG/100 ML BAG IVPB SCH ×3 (00:21→15:53)
[2022-03-25] MEDS: Cefepime HCl 2,000 MG in 0.9 % Sodium Chloride Mini Bag 100 ML IVPB SCH ×3 (00:21→19:59)
[2022-03-25] MEDS ORDERED: *HR* HYDROmorphone (PF) 1 MG/ML SYRINGE IVP ONE ×3 (00:26→13:17)
[2022-03-25 02:29] LABS: Hemoglobin 8.8 g/dL (11.5-15.4)
[2022-03-25 02:31] LABS: Hematocrit 28.5 % (35.3-44.9); Mean Corpuscular HGB Conc 30.9 g/dL (31.6-35.5); Mean Corpuscular Hemoglobin 30.2 pg (28.0-33.3); Mean Corpuscular Volume 97.9 fL (83.0-100.0); Mean Platelet Volume 8.8 fL (9.4-12.4); Platelet Count 375 K/mcL (140-400); Red Blood Count 2.91 M/mcL (3.82-4.97); Red Cell Distribution Width 16.4 % (11.5-14.5); White Blood Count 29.2 K/mcL (4.3-11.1)
[2022-03-25 02:51] LABS: BUN/Creatinine Ratio 42 (6-26); Blood Urea Nitrogen 47 mg/dL (6-20); Calcium 8.1 mg/dL (8.6-10.3); Carbon Dioxide 23 mEq/L (23-29); Chloride 105 mEq/L (98-107); Glucose 184 mg/dL (70-105); Osmolality,Calculated 295 (280-300); Potassium 5.2 mEq/L (3.5-5.1); Sodium 134 mEq/L (136-145); eGFR For African Americans > 60 (> 60); eGFR For Non-African Americans 51 (> 60)
[2022-03-25 02:53] LABS: Lymphocytes # 5.3 K/mcL (0.6-4.6); Neutrophils # 22.2 K/mcL (1.6-8.9); Platelet Estimate Normal (Normal); Toxic Granulation Present (Not Present)
[2022-03-25] MEDS: Ipratropium/Albuterol Neb 3 ML IH SCH ×4 (04:14→22:58)
[2022-03-25] MEDS: *HR* Heparin 5,000 UNIT/ML VIAL SQ SCH (06:10)
[2022-03-25] MEDS ORDERED: Albuterol 2.5 MG/3 ML NEBULIZER IH ONE ×2 (07:29→11:21)
[2022-03-25] MEDS ORDERED: Calcium Gluconate 1gm/50mL 1 GM/50 ML BAG IVPB ONE (07:29)
[2022-03-25] MEDS ORDERED: predniSONE 10 MG TABLET PO SCH (09:00)
[2022-03-25] MEDS: Famotidine 20 MG TABLET PO SCH ×2 (09:20→19:50)
[2022-03-25] MEDS: FLUoxetine 20 MG CAPSULE PO SCH ×2 (09:20→19:50)
[2022-03-25] MEDS: Gabapentin 100 MG CAPSULE PO SCH ×3 (09:20→19:50)
[2022-03-25] MEDS: Lactobacillus 1 EACH CAP.SPRINK PO SCH ×2 (09:20→19:50)
[2022-03-25] MEDS: Furosemide 40 MG TABLET PO SCH (11:01)
[2022-03-25 16:47] LABS: Hematocrit 30.2 % (35.3-44.9); Hemoglobin 9.3 g/dL (11.5-15.4)
[2022-03-25] MEDS: GuaiFENesin Liq 200 MG/10 ML UDC PO PRN (19:49)
[2022-03-26] MEDS: MetroNIDAZOLE 500 MG/100 ML 500 MG/100 ML BAG IVPB SCH ×3 (00:18→16:36)
[2022-03-26] MEDS: Ipratropium/Albuterol Neb 3 ML IH SCH ×4 (03:38→22:36)
[2022-03-26] MEDS: Cefepime HCl 2,000 MG in 0.9 % Sodium Chloride Mini Bag 100 ML IVPB SCH ×3 (04:56→21:12)
[2022-03-26 05:25] LABS: Hematocrit 28.5 % (35.3-44.9); Hemoglobin 8.9 g/dL (11.5-15.4); Mean Corpuscular HGB Conc 31.2 g/dL (31.6-35.5); Mean Corpuscular Hemoglobin 30.6 pg (28.0-33.3); Mean Corpuscular Volume 97.9 fL (83.0-100.0); Mean Platelet Volume 8.8 fL (9.4-12.4); Nucleated Red Blood Cells 0.1 /100 WBC (0); Platelet Count 371 K/mcL (140-400); Red Blood Count 2.91 M/mcL (3.82-4.97); Red Cell Distribution Width 16.5 % (11.5-14.5); White Blood Count 24.8 K/mcL (4.3-11.1)
[2022-03-26 05:35] LABS: BUN/Creatinine Ratio 38 (6-26); Blood Urea Nitrogen 39 mg/dL (6-20); Calcium 8.1 mg/dL (8.6-10.3); Carbon Dioxide 26 mEq/L (23-29); Chloride 105 mEq/L (98-107); Glucose 114 mg/dL (70-105); Osmolality,Calculated 290 (280-300); Sodium 135 mEq/L (136-145); eGFR For African Americans > 60 (> 60); eGFR For Non-African Americans 58 (> 60)
[2022-03-26 06:31] LABS: Lymphocytes # 4.5 K/mcL (0.6-4.6); Neutrophils # 19.3 K/mcL (1.6-8.9)
[2022-03-26 06:32] LABS: Hypochromasia Present (Not Present); Platelet Estimate Normal (Normal)
[2022-03-26] MEDS: Lactobacillus 1 EACH CAP.SPRINK PO SCH ×2 (08:12→21:12)
[2022-03-26] MEDS: Furosemide 40 MG TABLET PO SCH (08:12)
[2022-03-26] MEDS: FLUoxetine 20 MG CAPSULE PO SCH ×2 (08:13→21:12)
[2022-03-26] MEDS: Famotidine 20 MG TABLET PO SCH ×2 (08:13→21:12)
[2022-03-26] MEDS: Gabapentin 100 MG CAPSULE PO SCH ×3 (08:13→21:13)
[2022-03-26] MEDS ORDERED: predniSONE 20 MG TABLET PO SCH (09:00)
[2022-03-26] MEDS: *HR* OxyCODONE/APAP 5/325 TABLET PO PRN (09:43)
[2022-03-26] MEDS: Acetaminophen 325 MG TABLET PO PRN (17:58)
[2022-03-27] MEDS: Acetaminophen 325 MG TABLET PO PRN ×2 (01:06→07:35)
[2022-03-27] MEDS: MetroNIDAZOLE 500 MG/100 ML 500 MG/100 ML BAG IVPB SCH ×4 (01:06→23:18)
[2022-03-27] MEDS: Ipratropium/Albuterol Neb 3 ML IH SCH ×4 (03:30→22:40)
[2022-03-27 05:51] LABS: Hematocrit 29.2 % (35.3-44.9); Hemoglobin 9.2 g/dL (11.5-15.4); Mean Corpuscular HGB Conc 31.5 g/dL (31.6-35.5); Mean Corpuscular Hemoglobin 30.5 pg (28.0-33.3); Mean Corpuscular Volume 96.7 fL (83.0-100.0); Mean Platelet Volume 9.3 fL (9.4-12.4); Nucleated Red Blood Cells 0.2 /100 WBC (0); Platelet Count 379 K/mcL (140-400); Red Blood Count 3.02 M/mcL (3.82-4.97); Red Cell Distribution Width 16.7 % (11.5-14.5); White Blood Count 21.8 K/mcL (4.3-11.1)
[2022-03-27] MEDS: Cefepime HCl 2,000 MG in 0.9 % Sodium Chloride Mini Bag 100 ML IVPB SCH ×3 (06:06→23:16)
[2022-03-27 06:11] LABS: Platelet Estimate Normal (Normal)
[2022-03-27 06:12] LABS: Lymphocytes # 3.1 K/mcL (0.6-4.6); Monocytes # 0.4 K/mcL (0.0-1.3); Neutrophils # 17.4 K/mcL (1.6-8.9)
[2022-03-27 06:14] LABS: BUN/Creatinine Ratio 37 (6-26); Blood Urea Nitrogen 37 mg/dL (6-20); Calcium 8.1 mg/dL (8.6-10.3); Carbon Dioxide 22 mEq/L (23-29); Chloride 105 mEq/L (98-107); Glucose 108 mg/dL (70-105); Osmolality,Calculated 287 (280-300); Potassium 5.1 mEq/L (3.5-5.1); Sodium 134 mEq/L (136-145); eGFR For African Americans > 60 (> 60); eGFR For Non-African Americans 59 (> 60)
[2022-03-27] MEDS: FLUoxetine 20 MG CAPSULE PO SCH ×2 (07:28→20:42)
[2022-03-27] MEDS: lisinopriL 20 MG TABLET PO SCH (07:30)
[2022-03-27] MEDS: Lactobacillus 1 EACH CAP.SPRINK PO SCH ×2 (07:30→20:42)
[2022-03-27] MEDS: Gabapentin 100 MG CAPSULE PO SCH ×3 (07:30→20:41)
[2022-03-27] MEDS: Furosemide 40 MG TABLET PO SCH (07:30)
[2022-03-27] MEDS: Famotidine 20 MG TABLET PO SCH ×2 (07:30→20:42)
[2022-03-27] MEDS: *HR* OxyCODONE/APAP 5/325 TABLET PO PRN (10:35)
[2022-03-28 02:41] LABS: Basophils # 0.1 K/mcL (0.0-0.2); Basophils % 0.3 %; Eosinophils # 0.2 K/mcL (0.0-0.6); Eosinophils % 0.9 %; Immature Granulocytes % 4.5 % (0-4); Lymphocytes # 2.3 K/mcL (0.6-4.6); Lymphocytes % 10.3 %; Mean Corpuscular Hemoglobin 31.1 pg (28.0-33.3); Mean Corpuscular Volume 100.3 fL (83.0-100.0); Mean Platelet Volume 8.8 fL (9.4-12.4); Monocytes # 1.4 K/mcL (0.0-1.3); Monocytes % 6.2 %; Neutrophils # 17.7 K/mcL (1.6-8.9); Nucleated Red Blood Cells 0.1 /100 WBC (0); Platelet Count 317 K/mcL (140-400); Red Blood Count 2.89 M/mcL (3.82-4.97); Red Cell Distribution Width 16.7 % (11.5-14.5); Segmented Neutrophils % 77.8 %; White Blood Count 22.8 K/mcL (4.3-11.1)
[2022-03-28 03:04] LABS: BUN/Creatinine Ratio 35 (6-26); Blood Urea Nitrogen 33 mg/dL (6-20); Calcium 8.2 mg/dL (8.6-10.3); Carbon Dioxide 22 mEq/L (23-29); Chloride 104 mEq/L (98-107); Glucose 131 mg/dL (70-105); Osmolality,Calculated 281 (280-300); Sodium 131 mEq/L (136-145); eGFR For African Americans > 60 (> 60); eGFR For Non-African Americans > 60 (> 60)
[2022-03-28] MEDS: Ipratropium/Albuterol Neb 3 ML IH SCH ×3 (04:05→15:41)
[2022-03-28] MEDS: Cefepime HCl 2,000 MG in 0.9 % Sodium Chloride Mini Bag 100 ML IVPB SCH (06:05)
[2022-03-28] MEDS: Acetaminophen 325 MG TABLET PO PRN (06:09)
[2022-03-28] MEDS ORDERED: lisinopriL 20 MG TABLET PO SCH (09:00)
[2022-03-28] MEDS: Furosemide 40 MG TABLET PO SCH (09:08)
[2022-03-28] MEDS: Famotidine 20 MG TABLET PO SCH (09:08)
[2022-03-28] MEDS: Lactobacillus 1 EACH CAP.SPRINK PO SCH (09:09)
[2022-03-28] MEDS: MetroNIDAZOLE 500 MG/100 ML 500 MG/100 ML BAG IVPB SCH (09:09)
[2022-03-28] MEDS: Gabapentin 100 MG CAPSULE PO SCH ×2 (09:09→16:13)
[2022-03-28] MEDS: FLUoxetine 20 MG CAPSULE PO SCH (09:09)
[2022-03-28] MEDS: *HR* OxyCODONE/APAP 5/325 TABLET PO PRN (09:41)
[2022-03-28 11:44] VITALS: PULSE 76; TEMP 98.7; O2SAT 95
[2022-03-28 14:57] VITALS: BP 102/68
[2022-03-29] MEDS ORDERED: levoFLOXacin 750 MG TABLET PO SCH (09:00)
== END 2022-03-28 16:14 | disposition home health service (06) | DRG 720 ==
LOC: EMEROOARM 01:49 → 2ANU 01:49 → SUATTDRO 06:06 → 2ANU 06:38
PROVIDERS: ADMIT Internal Medicine; ATTEND General Practice